=== PATIENT | male | born 1935 | race Caucasian/White ===

== ENCOUNTER 2017-11-16 00:14 | Inpatient (IN) | payer MEDICARE, MEDICAID ==
[~2017-11-16] VITALS: Ht 162.6 cm; Wt 72.1 kg
[2017-11-16] MEDS ORDERED: MEMA10TA PO (00:40)
[2017-11-16] MEDS ORDERED: INSU100I26 SQ (00:40)
[2017-11-16] MEDS ORDERED: FINA5TAB11 PO (00:40)
[2017-11-16] MEDS ORDERED: AMLO5TAB7 PO (00:40)
[2017-11-16] MEDS ORDERED: ESCI10TA PO (00:40)
[2017-11-16] MEDS ORDERED: INSU100V36 SQ (00:40)
[2017-11-16] MEDS ORDERED: MAGN400O6 PO (00:40)
[2017-11-16] MEDS ORDERED: ACET-2154 PO (00:40)
[2017-11-16] MEDS ORDERED: FAMO-132 PO (00:40)
[2017-11-16] MEDS ORDERED: MELA3TAB PO (00:40)
[2017-11-16] MEDS ORDERED: CRAN405C PO (00:40)
[2017-11-16] MEDS ORDERED: LOSA100T15 PO (00:40)
[2017-11-16] MEDS ORDERED: CYAN10009 PO (00:40)
[2017-11-16] MEDS ORDERED: ASPI-605 PO (00:40)
[2017-11-16] MEDS ORDERED: CHOL50004 PO (00:40)
[2017-11-16 00:49] LABS: BASOPHILS # (AUTO) 0.1 K/uL (0.0-8.0); BASOPHILS % (AUTO) 0.8 % (0.0-2.0); EOSINOPHILS # (AUTO) 0.3 K/uL (0.0-0.7); EOSINOPHILS % (AUTO) 2.9 % (0.0-7.0); HEMATOCRIT 41.5 % (36.7-47.1); HEMOGLOBIN 14.2 g/dL (12.5-16.3); LYMPHOCYTES # (AUTO) 2.3 K/uL (20.0-40.0); LYMPHOCYTES % (AUTO) 25.4 % (20.5-51.5); MEAN CORPUSCULAR HEMOGLOBIN 29.4 uug (23.8-33.4); MEAN CORPUSCULAR HGB CONC 34 g/dL (32.5-36.3); MEAN CORPUSCULAR VOLUME 86.1 fL (73.0-96.2); MONOCYTES # (AUTO) 0.8 K/uL (2.0-10.0); MONOCYTES % (AUTO) 9.2 % (0.0-11.0); NEUTROPHILS # (AUTO) 5.5 K/uL (1.8-8.9); NEUTROPHILS % (AUTO) 61.7 % (38.5-71.5); PLATELET COUNT (AUTO) 232 K/uL (152-348); RED BLOOD CELL COUNT(AUTO) 4.82 MIL/uL (4.06-5.63); WHITE BLOOD COUNT (AUTO) 8.9 K/uL (3.6-10.2)
[2017-11-16 00:51] LABS: CARBON DIOXIDE 32 mmol/L (21-32); CHLORIDE 100 mmol/L (98-107); CREATININE 1.4 mg/dL (0.6-1.3); GLUCOSE 194 mg/dL (74-106); POTASSIUM 4.6 mmol/L (3.5-5.1); UREA NITROGEN, BLOOD 30 mg/dL (7-18)
[2017-11-16 01:01] LABS: ETHANOL < 3 MG/DL (0-0)
[2017-11-16 01:06] LABS: ALANINE AMINOTRANSFERASE 29 U/L (16-63); ALKALINE PHOSPHATASE 109 U/L (50-136); ASPARTATE AMINOTRANSFERASE 17 U/L (15-37); BILIRUBIN,DIRECT 0.1 mg/dL (0.0-0.2); BILIRUBIN,TOTAL 0.2 mg/dL (0.2-1.0); TOTAL PROTEIN, SERUM 7.6 g/dL (6.4-8.2)
[2017-11-16 01:07] LABS: ACETAMINOPHEN < 2.0 ug/mL (10-30)
--- NOTE | 2017-11-16 01:30 | NUR ---
pt seen by MD at bedside.
[2017-11-16] MEDS ORDERED: HALOPERIDOL LACTATE 5 MG/1 ML VIAL ONE (02:52)
[2017-11-16] MEDS ORDERED: HALOPERIDOL LACTATE 5 MG/1 ML VIAL IM ONE (03:00)
--- NOTE | 2017-11-16 03:28 | NUR ---
Pt. admitted to [facility] , under care of Dr. Mayes/Lorenzo. Diagnosis: Psychosis pt on 5150 hold GD. Belongs List completed. MRSA swab done. Report given to Ramon PICHARDO.
[2017-11-16 03:44] VITALS: BP 150/80
[2017-11-16] MEDS ORDERED: MAGNESIUM HYDROXIDE 30 ML LIQUID UDC PO PRN (03:45)
[2017-11-16] MEDS ORDERED: MAG HYDROX/AL HYDROX/SIMETH 30 ML LIQUID UDC PO PRN (03:45)
[2017-11-16 03:55] LABS: *BILIRUBIN,URIN NEGATIVE (NEGATIVE); *BLOOD, URINE Trace-lysed (NEGATIVE); *CLARITY,URINE CLOUDY (CLEAR); *COLOR,URINE YELLOW (YELLOW); *KETONES,URINE NEGATIVE (NEGATIVE); *PROTEIN,URINE NEGATIVE (NEGATIVE); *UROBILINOGEN,URINE 0.2 E.U./dl (NORMAL); LEUKOCYTE ESTERASE ,URINE 1+ (NEGATIVE); NITRITE, URINE NEGATIVE (NEGATIVE); UGLUCOSE NEGATIVE (NEGATIVE)
[2017-11-16 04:20] LABS: WBC,URINE 50-80 /HPF (0-3)
[2017-11-16 04:21] LABS: BACTERIA,URINE MANY /HPF (NONE SEEN); SQUAMOUS EPITHELIAL CELL,UR MODERATE /HPF (NONE SEEN)
[2017-11-16 04:26] LABS: *AMPHETAMINE, URINE NEGATIVE (NEGATIVE); *BARBITURATE, URINE NEGATIVE (NEGATIVE); *CANNABINOID, URINE NEGATIVE (NEGATIVE); *COCCAINE, URINE NEGATIVE (NEGATIVE); *OPIATE, URINE NEGATIVE (NEGATIVE); *PHENCYCLIDINE SCREEN,URINE NEGATIVE (NEGATIVE)
[2017-11-16] MEDS: LORAZEPAM 0.5 MG TABLET PO PRN (04:35)
--- NOTE | 2017-11-16 04:47 | NUR ---
GPS: Admitted to unit earlier an 82 yr.old male under the care of / in stable condition. Pt.is from [facility] who was placed on a 72 hour hold for GD. Pt.has been hypersexual at his SNF and when re-directed,pt becomes agitated and hostile,per hold. Pt.is confused,disoriented and speaks French language only. Skin assessment /personal belongings completed. Anxious at this time and needs re-direction from staff. Ativan 0.5mg given. Will monitor effectiveness. Safety emphasized. Fall precautions observed.
[2017-11-16 07:30] VITALS: BP 159/71
[2017-11-16] MEDS ORDERED: DEXTROSE 50% 50 ML DISP.SYRIN IV PRN (11:30)
[2017-11-16] MEDS: BLOOD SUGAR DIAGNOSTIC 1 EACH STRIP VI SCH ×3 (12:15→20:26)
[2017-11-16] MEDS: INSULIN REGULAR, HUMAN 300 UNIT/3 ML VIAL SQ PRN ×3 (12:23→20:29)
[2017-11-16] MEDS: CEPHALEXIN MONOHYDRATE 500 MG CAPSULE PO SCH ×2 (12:24→20:10)
[2017-11-16 16:24] VITALS: BP 127/57
[2017-11-16 19:30] VITALS: BP 128/69
[2017-11-16] MEDS: ESCITALOPRAM OXALATE 10 MG TABLET PO SCH (20:10)
[2017-11-16] MEDS: risperiDONE 0.25 MG TABLET PO SCH (20:10)
[2017-11-16] MEDS: INSULIN GLARGINE,HUM 300 UNITS/3 ML CARTRIDGE SQ SCH (20:29)
[2017-11-16] MEDS ORDERED: DIVALPROEX SPRINKLE 125 MG CAP.SPRINK PO SCH (21:00)
[2017-11-16] MEDS ORDERED: DIVALPROEX 250 MG TABLET.DR PO SCH (21:00)
[2017-11-17] MEDS: BLOOD SUGAR DIAGNOSTIC 1 EACH STRIP VI SCH ×4 (06:32→20:22)
[2017-11-17 06:59] LABS: BASOPHILS # (AUTO) 0.1 K/uL (0.0-8.0); BASOPHILS % (AUTO) 0.8 % (0.0-2.0); EOSINOPHILS # (AUTO) 0.3 K/uL (0.0-0.7); EOSINOPHILS % (AUTO) 2.7 % (0.0-7.0); HEMATOCRIT 44.7 % (36.7-47.1); LYMPHOCYTES # (AUTO) 2.6 K/uL (20.0-40.0); LYMPHOCYTES % (AUTO) 26.1 % (20.5-51.5); MEAN CORPUSCULAR HEMOGLOBIN 28.6 uug (23.8-33.4); MEAN CORPUSCULAR HGB CONC 34 g/dL (32.5-36.3); MONOCYTES # (AUTO) 0.9 K/uL (2.0-10.0); MONOCYTES % (AUTO) 8.8 % (0.0-11.0); NEUTROPHILS # (AUTO) 6.1 K/uL (1.8-8.9); NEUTROPHILS % (AUTO) 61.6 % (38.5-71.5); PLATELET COUNT (AUTO) 213 K/uL (152-348); RED BLOOD CELL COUNT(AUTO) 5.26 MIL/uL (4.06-5.63); WHITE BLOOD COUNT (AUTO) 9.9 K/uL (3.6-10.2)
[2017-11-17 07:11] LABS: CARBON DIOXIDE 30 mmol/L (21-32); CHLORIDE 102 mmol/L (98-107); CREATININE 1.2 mg/dL (0.6-1.3); GLUCOSE 103 mg/dL (74-106); MAGNESIUM 1.7 mg/dL (1.8-2.4); PHOSPHOROUS 3.4 mg/dL (2.5-4.9); POTASSIUM 4.2 mmol/L (3.5-5.1); UREA NITROGEN, BLOOD 30 mg/dL (7-18)
[2017-11-17 07:30] VITALS: BP 135/69
[2017-11-17] MEDS ORDERED: LEVOFLOXACIN 250 MG TABLET PO SCH (08:45)
[2017-11-17] MEDS: CYANOCOBALAMIN 1,000 MCG TABLET PO SCH (09:12)
[2017-11-17] MEDS: FAMOTIDINE 20 MG TABLET PO SCH (09:12)
[2017-11-17] MEDS: CEPHALEXIN MONOHYDRATE 500 MG CAPSULE PO SCH ×2 (09:12→20:23)
[2017-11-17] MEDS: ASPIRIN EC 81 MG TABLET.DR PO SCH (09:12)
[2017-11-17] MEDS: CHOLECALCIFEROL 1,000 UNIT TABLET PO SCH (09:12)
[2017-11-17] MEDS: FINASTERIDE 5 MG TABLET PO SCH (09:12)
[2017-11-17] MEDS: DIVALPROEX SPRINKLE 125 MG CAP.SPRINK PO SCH ×2 (09:13→20:23)
[2017-11-17] MEDS: AMLODIPINE 5 MG TABLET PO SCH (09:14)
[2017-11-17] MEDS: LOSARTAN POTASSIUM 50 MG TABLET PO SCH (09:14)
[2017-11-17] MEDS: INSULIN REGULAR, HUMAN 300 UNIT/3 ML VIAL SQ PRN ×3 (11:39→20:47)
[2017-11-17] MEDS ORDERED: MAGNESIUM OXIDE 400 MG TABLET PO ONE (12:00)
[2017-11-17 12:29] LABS: *BILIRUBIN,URIN NEGATIVE (NEGATIVE); *BLOOD, URINE Trace-lysed (NEGATIVE); *CLARITY,URINE CLEAR (CLEAR); *COLOR,URINE YELLOW (YELLOW); *KETONES,URINE NEGATIVE (NEGATIVE); *PROTEIN,URINE NEGATIVE (NEGATIVE); *UROBILINOGEN,URINE 0.2 E.U./dl (NORMAL); LEUKOCYTE ESTERASE ,URINE 1+ (NEGATIVE); NITRITE, URINE NEGATIVE (NEGATIVE); UGLUCOSE 2+ (NEGATIVE)
[2017-11-17 12:41] LABS: BACTERIA,URINE FEW /HPF (NONE SEEN); RBC,URINE 0-3 /HPF (0-3); SQUAMOUS EPITHELIAL CELL,UR FEW /HPF (NONE SEEN); WBC,URINE 20-50 /HPF (0-3)
[2017-11-17 12:44] LABS: *CREATININE,URINE 54.8 mg/dL (30-125)
[2017-11-17 16:19] VITALS: BP 139/68
--- NOTE | 2017-11-17 17:30 | NUR ---
Initial Discharge Plan: Patient currently lives at [facility] [[facility] [address] [place] [address]; ] and has been a resident since November 2016. Per Yvonne, production control coordinator, facility is accepting of patient once ready for discharge. firestop/containment worker attempted to get a hold of patient daughter Kaye Waldron [[phone]] to gather patient history, however, there was no answer. firestop/containment worker left voicemail for Tuesday at 11:15 am on 11/17/2017 asking for a callback. firestop/containment worker also reached out to patients , Jovan Ch [[phone]], but she is only Wolof speaking. firestop/containment worker will attempt to get a hold of family again. As of now, discharge plan is to return to [facility] when ready. firestop/containment worker will continue to collaborate with MD and parts clerk on safe and proper discharge of patient.
[2017-11-17] MEDS: INSULIN REGULAR, HUMAN 300 UNIT/3 ML VIAL SQ SCH (18:22)
[2017-11-17] MEDS: risperiDONE 0.25 MG TABLET PO SCH (20:23)
[2017-11-17] MEDS: ESCITALOPRAM OXALATE 10 MG TABLET PO SCH (20:23)
[2017-11-17] MEDS: INSULIN GLARGINE,HUM 300 UNITS/3 ML CARTRIDGE SQ SCH (20:41)
[2017-11-17] MEDS: LORAZEPAM 0.5 MG TABLET PO PRN (21:37)
--- NOTE | 2017-11-17 21:40 | NUR ---
GPS: Pt.is anxious,restless and pacing at this time. Frequently re-directed by staff. Pt.seems more irritable/easily agitated when being re-directed by staff and sitter. Frequently trying to go in other pts rooms. Ativan 0.5mg given. Will monitor effectiveness. Reality re-orientation provided prn.
[2017-11-18] MEDS: TEMAZEPAM 7.5 MG CAPSULE PO PRN ×2 (00:19→22:04)
--- NOTE | 2017-11-18 00:20 | NUR ---
GPS: Pt.still awake and wandering in and out of other pts room. Continues to require constant re-direction from staff. Easily irritable when being re-directed and observed to be trying to push staff away at times. Restoril 7.5mg given for insomnia. Will monitor effectiveness. Fall precautions observed. No facial grimacing of pain observed.
[2017-11-18] MEDS ORDERED: BLOOD SUGAR DIAGNOSTIC 1 EACH STRIP VI ONE (03:00)
[2017-11-18] MEDS: BLOOD SUGAR DIAGNOSTIC 1 EACH STRIP VI SCH ×4 (06:40→20:30)
[2017-11-18 07:30] VITALS: BP 149/72
[2017-11-18] MEDS: DIVALPROEX SPRINKLE 125 MG CAP.SPRINK PO SCH ×2 (09:43→20:30)
[2017-11-18] MEDS: FAMOTIDINE 20 MG TABLET PO SCH (09:43)
[2017-11-18] MEDS: ASPIRIN EC 81 MG TABLET.DR PO SCH (09:44)
[2017-11-18] MEDS: CYANOCOBALAMIN 1,000 MCG TABLET PO SCH (09:44)
[2017-11-18] MEDS: FINASTERIDE 5 MG TABLET PO SCH (09:44)
[2017-11-18] MEDS: AMLODIPINE 5 MG TABLET PO SCH (09:44)
[2017-11-18] MEDS: CHOLECALCIFEROL 1,000 UNIT TABLET PO SCH (09:44)
[2017-11-18] MEDS: CEPHALEXIN MONOHYDRATE 500 MG CAPSULE PO SCH ×2 (09:44→20:30)
[2017-11-18] MEDS: INSULIN REGULAR, HUMAN 300 UNIT/3 ML VIAL SQ SCH ×2 (09:47→18:14)
[2017-11-18] MEDS: LOSARTAN POTASSIUM 50 MG TABLET PO SCH (10:45)
[2017-11-18] MEDS: INSULIN REGULAR, HUMAN 300 UNIT/3 ML VIAL SQ PRN ×3 (12:03→20:34)
[2017-11-18 16:50] VITALS: BP 139/73
[2017-11-18 20:00] VITALS: BP 125/61
[2017-11-18] MEDS: ESCITALOPRAM OXALATE 10 MG TABLET PO SCH (20:30)
[2017-11-18] MEDS: risperiDONE 0.25 MG TABLET PO SCH (20:30)
[2017-11-18] MEDS: INSULIN GLARGINE,HUM 300 UNITS/3 ML CARTRIDGE SQ SCH (20:33)
[2017-11-18] MEDS: ACETAMINOPHEN 325 MG TABLET PO PRN (22:04)
[2017-11-19] MEDS: BLOOD SUGAR DIAGNOSTIC 1 EACH STRIP VI SCH ×4 (06:35→21:08)
--- NOTE | 2017-11-19 07:00 | NUR ---
PT SLEPT SEVEN HOURS. SITTER AT BEDSIDE FOR SAFETY. PT SHOWS NO SIGNS OF DISTRESS. PT COOPERATIVE WITH CARE. PLEASANT WHEN APPROACHED AND INTERACT WHEN APPROACHED. SAFETY AND COMFORT PROVIDED. ALL NEEDS ARE MET.WILL ENDORSE TO DAYSHIFT NURSE FOR CONTINUITY OF CARE.
[2017-11-19 07:30] VITALS: BP 132/54
[2017-11-19] MEDS: CEPHALEXIN MONOHYDRATE 500 MG CAPSULE PO SCH ×2 (09:15→20:51)
[2017-11-19] MEDS: ASPIRIN EC 81 MG TABLET.DR PO SCH (09:15)
[2017-11-19] MEDS: CYANOCOBALAMIN 1,000 MCG TABLET PO SCH (09:15)
[2017-11-19] MEDS: FAMOTIDINE 20 MG TABLET PO SCH (09:15)
[2017-11-19] MEDS: FINASTERIDE 5 MG TABLET PO SCH (09:15)
[2017-11-19] MEDS: DIVALPROEX SPRINKLE 125 MG CAP.SPRINK PO SCH ×2 (09:16→20:51)
[2017-11-19] MEDS: CHOLECALCIFEROL 1,000 UNIT TABLET PO SCH (09:16)
[2017-11-19] MEDS: LOSARTAN POTASSIUM 50 MG TABLET PO SCH (09:17)
[2017-11-19] MEDS: AMLODIPINE 5 MG TABLET PO SCH (09:17)
[2017-11-19] MEDS: INSULIN REGULAR, HUMAN 300 UNIT/3 ML VIAL SQ SCH ×2 (09:45→17:27)
--- NOTE | 2017-11-19 11:48 | NUR ---
Pt found on the floor with his face down, and his weight landed more on his left knee by the [address]. 1:1 sitter was not able to catch him on time. Sustain 1 skin abrasion on his left knee, picture taken, no bruises around the other site noted. Pt able to stand up, ambulated back and forth the [address] with the sitter, slowly with a slight limp towards the left side of leg. Notified Wilfredo PATCH DRILLER of the incident and ordered a acomplete xray of the left knee. Applied ice pack on the left knee for comfort and preventing swelling around the area.
--- NOTE | 2017-11-19 12:30 | NUR ---
Called and notified the daughter Kaye about the incident. Very receptive and appreciative of the information. Stated will come to visit later in the afternoon.
[2017-11-19] MEDS: INSULIN REGULAR, HUMAN 300 UNIT/3 ML VIAL SQ PRN ×2 (13:03→21:16)
--- NOTE | 2017-11-19 13:25 | NUR ---
Pt is intermittently sleeping in bed at this time. Sitter at the bedside.
[2017-11-19 17:49] VITALS: BP 138/70
[2017-11-19 20:07] VITALS: BP_SYST 125; BP_SYST 142; BP_DIAS 62; BP_DIAS 65
[2017-11-19] MEDS: risperiDONE 0.25 MG TABLET PO SCH (20:51)
[2017-11-19] MEDS: ESCITALOPRAM OXALATE 10 MG TABLET PO SCH (20:51)
[2017-11-19] MEDS: INSULIN GLARGINE,HUM 300 UNITS/3 ML CARTRIDGE SQ SCH (21:12)
[2017-11-19] MEDS: TEMAZEPAM 7.5 MG CAPSULE PO PRN (21:23)
[2017-11-19] MEDS: LORAZEPAM 0.5 MG TABLET PO PRN (22:36)
[2017-11-19] MEDS: ACETAMINOPHEN 325 MG TABLET PO PRN (22:36)
[2017-11-20] MEDS: BLOOD SUGAR DIAGNOSTIC 1 EACH STRIP VI SCH ×4 (06:37→20:01)
[2017-11-20 07:57] VITALS: BP 145/71
[2017-11-20] MEDS: CYANOCOBALAMIN 1,000 MCG TABLET PO SCH (08:17)
[2017-11-20] MEDS: ASPIRIN EC 81 MG TABLET.DR PO SCH (08:18)
[2017-11-20] MEDS: CHOLECALCIFEROL 1,000 UNIT TABLET PO SCH (08:18)
[2017-11-20] MEDS: FAMOTIDINE 20 MG TABLET PO SCH (08:18)
[2017-11-20] MEDS: LOSARTAN POTASSIUM 50 MG TABLET PO SCH (08:18)
[2017-11-20] MEDS: FINASTERIDE 5 MG TABLET PO SCH (08:19)
[2017-11-20] MEDS: DIVALPROEX SPRINKLE 125 MG CAP.SPRINK PO SCH ×2 (08:19→20:12)
[2017-11-20] MEDS: AMLODIPINE 5 MG TABLET PO SCH (08:19)
[2017-11-20] MEDS: CEPHALEXIN MONOHYDRATE 500 MG CAPSULE PO SCH ×2 (08:19→20:12)
[2017-11-20] MEDS: INSULIN REGULAR, HUMAN 300 UNIT/3 ML VIAL SQ SCH ×2 (08:32→17:36)
[2017-11-20] MEDS: INSULIN REGULAR, HUMAN 300 UNIT/3 ML VIAL SQ PRN ×3 (12:38→20:16)
[2017-11-20 15:21] VITALS: BP 163/89
[2017-11-20 20:00] VITALS: BP 132/59
[2017-11-20] MEDS: risperiDONE 0.25 MG TABLET PO SCH (20:12)
[2017-11-20] MEDS: ESCITALOPRAM OXALATE 10 MG TABLET PO SCH (20:12)
[2017-11-20] MEDS: INSULIN GLARGINE,HUM 300 UNITS/3 ML CARTRIDGE SQ SCH (20:15)
[2017-11-20] MEDS: TEMAZEPAM 7.5 MG CAPSULE PO PRN (23:25)
[2017-11-21] MEDS: BLOOD SUGAR DIAGNOSTIC 1 EACH STRIP VI SCH ×4 (07:01→20:46)
[2017-11-21 07:30] VITALS: BP 151/57
[2017-11-21] MEDS: CEPHALEXIN MONOHYDRATE 500 MG CAPSULE PO SCH ×2 (08:03→20:56)
[2017-11-21] MEDS: CHOLECALCIFEROL 1,000 UNIT TABLET PO SCH (08:03)
[2017-11-21] MEDS: DIVALPROEX SPRINKLE 125 MG CAP.SPRINK PO SCH ×2 (08:03→20:56)
[2017-11-21] MEDS: ASPIRIN EC 81 MG TABLET.DR PO SCH (08:03)
[2017-11-21] MEDS: FAMOTIDINE 20 MG TABLET PO SCH (08:03)
[2017-11-21] MEDS: CYANOCOBALAMIN 1,000 MCG TABLET PO SCH (08:04)
[2017-11-21] MEDS: FINASTERIDE 5 MG TABLET PO SCH (08:04)
[2017-11-21] MEDS: LOSARTAN POTASSIUM 50 MG TABLET PO SCH (08:25)
[2017-11-21] MEDS: AMLODIPINE 5 MG TABLET PO SCH (08:25)
[2017-11-21] MEDS: INSULIN REGULAR, HUMAN 300 UNIT/3 ML VIAL SQ SCH ×2 (09:00→17:32)
[2017-11-21 16:00] VITALS: BP 117/59
[2017-11-21] MEDS: INSULIN REGULAR, HUMAN 300 UNIT/3 ML VIAL SQ PRN ×2 (17:28→20:55)
[2017-11-21 20:11] VITALS: BP 120/66
[2017-11-21] MEDS: ESCITALOPRAM OXALATE 10 MG TABLET PO SCH (20:56)
[2017-11-21] MEDS: risperiDONE 0.25 MG TABLET PO SCH (20:56)
[2017-11-21] MEDS ORDERED: INSULIN GLARGINE,HUM 300 UNITS/3 ML CARTRIDGE SQ SCH (21:00)
[2017-11-21] MEDS: TEMAZEPAM 7.5 MG CAPSULE PO PRN (23:10)
[2017-11-22] MEDS: BLOOD SUGAR DIAGNOSTIC 1 EACH STRIP VI SCH ×4 (06:32→20:23)
--- NOTE | 2017-11-22 06:45 | NUR ---
GPS: Pt.continues to wander from room to room. Re-directed prn. 1:1 sitter at his side at all times for safety. B.S. at this time is 78mg/dl. Will continue to monitor.
[2017-11-22 07:30] VITALS: BP 111/69
[2017-11-22] MEDS: CHOLECALCIFEROL 1,000 UNIT TABLET PO SCH (08:37)
[2017-11-22] MEDS: FAMOTIDINE 20 MG TABLET PO SCH (08:37)
[2017-11-22] MEDS: ASPIRIN EC 81 MG TABLET.DR PO SCH (08:37)
[2017-11-22] MEDS: DIVALPROEX SPRINKLE 125 MG CAP.SPRINK PO SCH ×2 (08:38→20:25)
[2017-11-22] MEDS: CYANOCOBALAMIN 1,000 MCG TABLET PO SCH (08:38)
[2017-11-22] MEDS: CEPHALEXIN MONOHYDRATE 500 MG CAPSULE PO SCH ×2 (08:38→20:26)
[2017-11-22] MEDS: FINASTERIDE 5 MG TABLET PO SCH (08:38)
[2017-11-22] MEDS: LOSARTAN POTASSIUM 50 MG TABLET PO SCH (08:38)
[2017-11-22] MEDS: AMLODIPINE 5 MG TABLET PO SCH (08:39)
[2017-11-22] MEDS: INSULIN REGULAR, HUMAN 300 UNIT/3 ML VIAL SQ SCH ×2 (08:52→18:30)
--- NOTE | 2017-11-22 10:35 | NUR ---
Discharge planning: poultry farm worker called patient's daughter, Kaye Motley [[phone]], to check-in about patient. poultry farm worker left voicemail for Kaye at 10:30am. This is the second call to family without response. poultry farm worker will continue to reach out to family.
[2017-11-22] MEDS: INSULIN REGULAR, HUMAN 300 UNIT/3 ML VIAL SQ PRN ×2 (12:04→20:37)
[2017-11-22 16:30] VITALS: BP 138/67
[2017-11-22 19:30] VITALS: BP 123/46
[2017-11-22] MEDS: risperiDONE 0.25 MG TABLET PO SCH (20:25)
[2017-11-22] MEDS: ESCITALOPRAM OXALATE 10 MG TABLET PO SCH (20:26)
[2017-11-22] MEDS: INSULIN GLARGINE,HUM 300 UNITS/3 ML CARTRIDGE SQ SCH (20:30)
[2017-11-22] MEDS: TEMAZEPAM 7.5 MG CAPSULE PO PRN (22:49)
[2017-11-23] MEDS: BLOOD SUGAR DIAGNOSTIC 1 EACH STRIP VI SCH ×4 (06:33→21:09)
[2017-11-23 07:30] VITALS: BP 126/67
[2017-11-23] MEDS: DIVALPROEX SPRINKLE 125 MG CAP.SPRINK PO SCH ×2 (08:28→21:00)
[2017-11-23] MEDS: LOSARTAN POTASSIUM 50 MG TABLET PO SCH (08:28)
[2017-11-23] MEDS: AMLODIPINE 5 MG TABLET PO SCH (08:28)
[2017-11-23] MEDS: FAMOTIDINE 20 MG TABLET PO SCH (08:28)
[2017-11-23] MEDS: FINASTERIDE 5 MG TABLET PO SCH (08:29)
[2017-11-23] MEDS: CHOLECALCIFEROL 1,000 UNIT TABLET PO SCH (08:29)
[2017-11-23] MEDS: CYANOCOBALAMIN 1,000 MCG TABLET PO SCH (08:29)
[2017-11-23] MEDS: ASPIRIN EC 81 MG TABLET.DR PO SCH (08:29)
[2017-11-23] MEDS: INSULIN REGULAR, HUMAN 300 UNIT/3 ML VIAL SQ SCH ×2 (08:31→18:10)
[2017-11-23] MEDS: LORAZEPAM 0.5 MG TABLET PO PRN (08:33)
--- NOTE | 2017-11-23 08:40 | NUR ---
Patient on 1:1 sitter, anxious, restless and irritated. Alert, awake, oriented x1. PRN Ativan given.
--- NOTE | 2017-11-23 09:38 | NUR ---
Firearms Report (late entry for 11/22/2017): lithography contact worker submitted a [employer] firearms report for patient who is on a 5250 gravely disabled certification.
--- NOTE | 2017-11-23 11:56 | NUR ---
Discharge planning: Patient is planned for discharge tomorrow, 11/24/2017, and will return back to [facility]. Yvonne, delivery coordinator, at facility has been alerted and is accepting of patient. ironing worker attempted to contact patient daughter, Kaye Motley [[phone]], for the third time, but reached her voicemail again and left another message explaining discharge planned for tomorrow. ironing worker will continue to plan a safe and proper discharge.
[2017-11-23] MEDS: INSULIN REGULAR, HUMAN 300 UNIT/3 ML VIAL SQ PRN ×2 (12:22→16:50)
[2017-11-23 16:02] VITALS: BP 125/69
[2017-11-23 19:30] VITALS: BP 137/76
[2017-11-23] MEDS: risperiDONE 0.25 MG TABLET PO SCH (21:00)
[2017-11-23] MEDS: ESCITALOPRAM OXALATE 10 MG TABLET PO SCH (21:00)
[2017-11-23] MEDS: INSULIN GLARGINE,HUM 300 UNITS/3 ML CARTRIDGE SQ SCH (21:00)
--- NOTE | 2017-11-23 22:00 | NUR ---
received to care, lying in bed, 1 to 1 sitter at side, at all times, for safety. refused all medications offered, but allowed staff to check his blood sugar. refused insulin, and food. paces the hallway intermittently. as of 0, he remains awake. currently lying in bed. no distress noted. will continue to monitor closely.
--- NOTE | 2017-11-24 01:09 | NUR ---
remains awake. continues to refuse food and medications. no hypersexual behaviors noted. sitter remains at side. will continue to monitor closely.
[2017-11-24] MEDS: TEMAZEPAM 7.5 MG CAPSULE PO PRN (02:08)
--- NOTE | 2017-11-24 02:08 | NUR ---
remains awake, and restless, pacing the hallway intermittently. PRN restoril was given at this time, with much encouragement. remains at nurses station. no distress noted. will continue to monitor closely.
--- NOTE | 2017-11-24 04:00 | NUR ---
remains awake, but appears calmer. currently up in sandra chair. sitter at side.
--- NOTE | 2017-11-24 06:00 | NUR ---
assisted with am care, and shower, at 0530. as of 0600, he appears to be asleep, in bed. no distress noted. sitter remains at side.
[2017-11-24] MEDS: BLOOD SUGAR DIAGNOSTIC 1 EACH STRIP VI SCH ×2 (06:57→11:47)
[2017-11-24 07:30] VITALS: BP 125/69
[2017-11-24] MEDS: AMLODIPINE 5 MG TABLET PO SCH (08:29)
[2017-11-24] MEDS: DIVALPROEX SPRINKLE 125 MG CAP.SPRINK PO SCH (08:30)
[2017-11-24] MEDS: FAMOTIDINE 20 MG TABLET PO SCH (08:30)
[2017-11-24] MEDS: FINASTERIDE 5 MG TABLET PO SCH (08:30)
[2017-11-24] MEDS: CYANOCOBALAMIN 1,000 MCG TABLET PO SCH (08:30)
[2017-11-24] MEDS: CHOLECALCIFEROL 1,000 UNIT TABLET PO SCH (08:30)
[2017-11-24 08:31] VITALS: BP 125/69
[2017-11-24] MEDS: LOSARTAN POTASSIUM 50 MG TABLET PO SCH (08:31)
[2017-11-24] MEDS: ASPIRIN EC 81 MG TABLET.DR PO SCH (08:36)
--- NOTE | 2017-11-24 08:43 | NUR ---
Discharge Note: Patient will be discharged back to [facility] [[address] [place] [address]; ] and transportation will be provided by ambulance at 11:00am. Please arrange ambulance transportation for patient. balcony worker has confirmed discharge back to facility with Yvonne, team coordinator, who is accepting of patient. balcony worker called and spoke with Kaye Motley [[phone]], patient daughter, informing her of patient discharge and she is agreeable. Patient is alert and oriented x1 and denies any SI/HI. Patient will follow-up with Dr. Adan (log clerk) and Dr. Riley (psychiatrist). Patient was given outpatient mental health resources [facility] Crisis Line [ ], M[facility] Rodriguez [ ], and the National Suicide Prevention Lifeline [ ].
[2017-11-24] MEDS: INSULIN REGULAR, HUMAN 300 UNIT/3 ML VIAL SQ SCH (09:16)
--- NOTE | 2017-11-24 09:46 | NUR ---
received an 82 Y/O M pt as a case of psychosis, PT didnt have any sleep last night. SITTER AT BEDSIDE FOR SAFETY. PT is alert, SHOWS NO SIGNS OF DISTRESS. PT COOPERATIVE WITH CARE. PLEASANT WHEN APPROACHED AND INTERACT WHEN APPROACHED. SAFETY AND COMFORT PROVIDED. ALL NEEDS ARE MET.
[2017-11-24] MEDS: INSULIN REGULAR, HUMAN 300 UNIT/3 ML VIAL SQ PRN (12:02)
--- NOTE | 2017-11-24 14:24 | NUR ---
DISCHARGE REPORT GIVEN TO [facility], [facility], AROUND 11:30 AM , PT LEFT WITH AMBULANCE, FULL REPORT GIVEN, ALL BELONGINGS TAKEN. DISCHARGE INSTRUCTIONS RECEIVED.
== END 2017-11-24 13:45 | DRG 885 ==
LOC: ER 00:23 → GPS 03:26
PROVIDERS: ADMIT Psychiatry & Neurology Psychiatry; ATTEND Internal Medicine
DX: F29 Unspecified psychosis not due to a substance or known physiological condition (principal); N17.9 Acute kidney failure, unspecified; N18.9 Chronic kidney disease, unspecified; B95.1 Streptococcus, group B, as the cause of diseases classified elsewhere; E11.65 Type 2 diabetes mellitus with hyperglycemia; G93.40 Encephalopathy, unspecified; N39.0 Urinary tract infection, site not specified; F03.91 Unspecified dementia, unspecified severity, with behavioral disturbance; I12.9 Hypertensive chronic kidney disease with stage 1 through stage 4 chronic kidney disease, or unspecified chronic kidney disease; E11.22 Type 2 diabetes mellitus with diabetic chronic kidney disease; E83.42 Hypomagnesemia; F32.9 Major depressive disorder, single episode, unspecified; B96.20 Unspecified Escherichia coli [E. coli] as the cause of diseases classified elsewhere; K21.9 Gastro-esophageal reflux disease without esophagitis; Z73.6 Limitation of activities due to disability; F41.9 Anxiety disorder, unspecified; F39 Unspecified mood [affective] disorder; N40.1 Benign prostatic hyperplasia with lower urinary tract symptoms; Z79.4 Long term (current) use of insulin
CPT/HCPCS: 36415; 76770; 80164; 80307; 83735; 84100; 84156; 84300; 85025; 87077; 87086; 93005; 97116; 97530; A4663; G0480; G0480-TC; J1630; J1815; J3490